=== PATIENT | female | born 1980 | race Hispanic/Latino ===

== ENCOUNTER 2023-08-24 06:11 | Emergency (ER) | payer MEDICAID, SELFPAY ==
--- NOTE | ~2023-08-24 | US_ITS ---
EXAMINATION: US OB <=14 wk fetus w TV DATE: 08/24/2023 08:25 INDICATION: Vaginal bleeding in . Beta-hCG is 3488 mIU/mL. TECHNIQUE: Real-time transabdominal and transvaginal pelvic ultrasound was performed. COMPARISON: None. FINDINGS: TRANSABDOMINAL ULTRASOUND: The uterus measures 10.8 x 5.9 x 8.4 cm. TRANSVAGINAL ULTRASOUND: There is no visible intrauterine gestational sac. The endometrial complex me asures up to 12 mm in thickness with internal vascular flow. The right ovary measures 2.7 x 3.8 x 2.0 cm. The left ovary measures 4.0 x 4.5 x 2.5 cm. There is no free fluid in the pelvis. IMPRESSION: 1. No visible intrauterine gestational sac suspicious for spontaneous or ectopic . If the patient has experienced a spontaneous , the thickened endometrial complex with manufacturing engineering intern al vascular flow would be suspicious for retained products of conception. Reviewed, dictated and finalized at location A. IMPRESSION: 1. No visible intrauterine gestational sac suspicious for spontaneous or ectopic . If the patient has experienced a spontaneous , t he thickened endometrial complex with internal vascular flow would be suspiciou s for retained products of conception.
[2023-08-24 06:13] VITALS: BP 126/87; PULSE 71; RESP 17; TEMP 36.3; O2SAT 100
[2023-08-24 06:31] LABS: Basophils Absolute Auto 0.1 K/mm3 (0.0-0.1); Basophils Percent Auto 0.9 % (0.2-1.2); Eosinophils Absolute Auto 0.4 K/mm3 (0-0.3); Eosinophils Percent Auto 4.7 % (0-4.4); Hematocrit 38.3 % (37.0-47.0); Hemoglobin 11.8 g/dL (12.0-15.0); Immature Granulocyte Absolute 0.02 K/mm3 (0.00-0.031); Immature Granulocyte Percent A 0.3 % (0-0.5); Lymphocytes Absolute Auto 2.19 K/mm3 (0.9-3.2); Lymphocytes Percent Auto 29.4 % (18.3-44.2); Mean Corpuscular HGB Conc 30.8 g/dl (32-36); Mean Corpuscular Hemoglobin 25.8 pg (26-34); Mean Corpuscular Volume 83.6 fl (80-100); Mean Platelet Volume 9.8 fl (7.4-10.4); Monocytes Absolute Auto 0.6 K/mm3 (0.1-0.6); Monocytes Percent Auto 7.7 % (2.6-8.5); Neutrophils Absolute Auto 4.3 K/mm3 (1.3-6.7); Platelet Count Result 251 k/mm3 (150-375); Red Blood Count 4.58 M/mm3 (4.2-5.4); Red Cell Distribution Width 15.4 % (11.5-14.5); White Blood Count 7.5 K/mm3 (4.5-10.0)
[2023-08-24 06:39] VITALS: BP 107/75; PULSE 69; RESP 14; O2SAT 100
[2023-08-24 06:41] LABS: Alanine Aminotransferase 19 U/L (6-35); Albumin Level 4.5 g/dL (3.5-5.1); Alkaline Phosphatase 93 U/L (38-126); Anion Gap 6 mmol/L (4-12); Aspartate Amino Transferase 18 U/L (14-36); Bilirubin,Total 0.3 mg/dL (0.2-1.3); Blood Urea Nitrogen 11 mg/dL (7-17); Carbon Dioxide 24 mmol/L (22-30); Chloride 108 mmol/L (98-107); Estimated Glomerular Filt Rate > 60; Glucose 115 mg/dL (65-110); Potassium 3.4 mmol/L (3.4-5.0); Sodium 138 mmol/L (137-145)
[2023-08-24 06:44] LABS: Prothrombin Time 13.9 Seconds (11.1-14.7)
[2023-08-24 06:46] LABS: Partial Thromboplastin Time 30.4 Seconds (22.3-36.8)
[2023-08-24 07:01] VITALS: BP 122/89; PULSE 76; RESP 17; O2SAT 100
[2023-08-24 07:10] LABS: Bacteria Urine Rare /hpf; Need Manual Microscopic Reviewed; Non Pathogenic Casts 0-2; RBC Urine >100 /hpf (0-2); Squamous Epithelial Cell Urine Occasional /hpf (Few)
[2023-08-24 07:17] LABS: Appearance Urine Turbid (Clear); Bilirubin Urine 1+ (Negative); Blood Urine 2+ (Negative); Color Urine Red (Yellow); Glucose Urine UA Negative (Negative); Ketones Urine Negative (Negative); Leukocyte Esterase Ur 2+ LEU/UL (Negative); Nitrate Urine Positive (Negative); Protein Urine 2+ mg/dL (Negative); Urobilinogen Urine 0.2 mg/dL (<2.0)
[2023-08-24 07:18] LABS: Add Urine Microscopic? YES
--- NOTE | 2023-08-24 07:22 | ED.GENADULT ---
HPI - General Adult General Chief complaint: Vaginal Bleeding Stated complaint: Vaginal bleeding, ? Time Seen by Provider: 08/24/23 06:53 History of Present Illness HPI narrative: 43-year-old female presenting to the emergency department for evaluation persistent lower abdominal pain and vaginal bleeding. Patient states last week she presented to [facility] due to abdominal pain and was told that she was in the process having a spontaneous . Patient does not have a local OB Gyne and states she was not provided 1 at time discharge. Patient presented to our hospital complaining persistent lower abdominal pain. Patient has history of 4 prior pregnancies 2 of which ended in spontaneous . Related Data Allergies Allergy/AdvReac Type Severity Reaction Status Date / Time No Known Allergies Allergy Verified 08/24/23 06:12 Review of Systems Review of Systems: All systems reviewed & are unremarkable except as noted in HPI and below Exam Narrative: APPEARANCE: Well appearing, no pain, no distress, well-nourished. HEAD: normocephalic, atraumatic. EYES: PERRLA/EOMI, conjunctivae clear. NOSE: Normal no drainage NECK: Supple. No adenopathy, no masses. RESPIRATORY: Airway patent, respirations nonlabored. Clear to auscultation bilaterally, no rales, rhonchi, wheezing. CARDIOVASCULAR: Regular rate and rhythm without murmurs rubs or gallops. ABDOMINAL: Lower abdominal tenderness to palpation MUSCULOSKELETAL: Moves all extremities. Strength/ROM intact, No edema, No calf tenderness. NEURO: Alert. Cranial nerves II through XII intact. Good gait. Good coordination SKIN: Warm, dry. Normal Color Course Vital Signs Vital signs: Vital Signs Temperature 97.4 F L 08/24/23 06:13 Pulse Rate 71 08/24/23 06:13 Respiratory Rate 17 08/24/23 06:13 Blood Pressure 126/87 08/24/23 06:13 Pulse Oximetry 100 08/24/23 06:13 Oxygen Delivery Room Air 08/24/23 06:13 Temperature 97.7 F 08/24/23 10:00 Pulse Rate 64 08/24/23 10:00 Respiratory Rate 17 08/24/23 10:00 Blood Pressure 114/68 08/24/23 10:00 Pulse Oximetry 100 08/24/23 10:00 Oxygen Delivery Room Air 08/24/23 06:13 Medical Decision Making MDM Narrative Medical decision making narrative: 43-year-old female presenting to the emergency department for evaluation for persistent or abdominal pain and vaginal bleeding after recent spontaneous . Patient is afebrile with no leukocytosis and hemoglobin of 11.8. Patient's INR is 1.0. Urine does have blood and nitrates. Patient's blood type is B positive. Ultrasound was ordered to evaluate for retained products of conception. Ultrasound was also concern for possible retained products of conception. Case was discussed with Dr Guzman. Since the patient's beta-hCG was decreased compared to her evaluate [facility] the [facility]ne was comfortable with plan for treating the patient with Cytotec. Patient was treated with 800 mg of Cytotec in the emergency department and discharged home to take an additional dose in 24 hours. Patient initially stated that she did not have an OB Gyne but patient then provided information that [facility]. Patient and family were comfortable the plan for discharge and close follow-up Differential Diagnosis Differential Diagnosis: Hemorrhage, retained products of conception, spontaneous , ectopic , Vital Signs Vital Signs: Vital Signs Temperature 97.4 F L 08/24/23 06:13 Pulse Rate 71 08/24/23 06:13 Respiratory Rate 17 08/24/23 06:13 Blood Pressure 126/87 08/24/23 06:13 Pulse Oximetry 100 08/24/23 06:13 Oxygen Delivery Room Air 08/24/23 06:13 Temperature 97.7 F 08/24/23 10:00 Pulse Rate 64 08/24/23 10:00 Respiratory Rate 17 08/24/23 10:00 Blood Pressure 114/68 08/24/23 10:00 Pulse Oximetry 100 08/24/23 10:00 Oxygen Delivery Room Air 08/24/23 06:1
[2023-08-24] MEDS: SODIUM CHLORIDE 0.9% IV 1,000 ML 999 ML IV CONT (08:12)
[2023-08-24] MEDS: HYDROmorphone HCL INJ (*CRX) 1 MG/ML SYR 0.5 MG IV PUSH (08:12)
[2023-08-24 08:33] VITALS: BP 120/68; PULSE 64; RESP 19; TEMP 36.6; O2SAT 100
[2023-08-24 09:01] VITALS: BP 115/71; PULSE 61; RESP 19; O2SAT 100
[2023-08-24 10:00] VITALS: BP 114/68; PULSE 64; RESP 17; TEMP 36.5; O2SAT 100
[2023-08-24] MEDS: miSOPROStol 200 MCG TABLET 800 MCG PO (10:27)
== END 2023-08-24 10:40 | disposition home or self-care (01) ==
PROVIDERS: Emergency Medicine; Emergency Provider Emergency Medicine
DX: R10.30 Lower abdominal pain, unspecified (principal); N93.9 Abnormal uterine and vaginal bleeding, unspecified
CPT/HCPCS: 36415; 76801; 76817; 80053; 81001; 84702; 85025; 85461; 85610; 85730; 86850; 86900; 86901; 87086; 87088; 96361; 96374; 99284; A9270; J1170; J7030

== ENCOUNTER 2023-12-02 17:35 | Emergency (ER) | payer OTHER, SELFPAY ==
--- NOTE | ~2023-12-02 | US_ITS ---
EXAMINATION: US abdomen limited DATE: 12/02/2023 20:11 INDICATION: Right upper quadrant abdominal pain after eating TECHNIQUE: Multiple grayscale and Doppler ultrasound images of the abdomen were obtained. COMPARISON: None FINDINGS: The pancreatic head and body are normal in appearance. The pancreatic tail is not visualized. The vi sualized proximal inferior vena cava is normal. Liver has normal echogenicity and contour, with a smo oth surface. No liver lesion identified. No intrahepatic biliary duct dilation suspected. Portal veno us flow was seen in the hepatopetal, normal direction and has normal Doppler waveform. Shadowing gall stones are seen in the otherwise normal-appearing gallbladder. The common bile duct measures 4 mm wade meter which is normal. Sonographic Taylor sign was reported as negative by the telephone service adviser.There is m ild right hydronephrosis. IMPRESSION: 1. Cholelithiasis without findings of acute cholecystitis or biliary ductal dilation. 2. Mild right hydronephrosis. Reviewed, dictated and finalized at location A. IMPRESSION: 1. Cholelithiasis without findings of acute cholecystitis or biliary ductal dil ation. 2. Mild right hydronephrosis.
[2023-12-02 17:37] VITALS: BP 150/83; PULSE 99; RESP 19; TEMP 36.9; O2SAT 100
[2023-12-02 18:07] LABS: Basophils Percent Auto 0.7 % (0.2-1.2); Eosinophils Absolute Auto 0.1 K/mm3 (0-0.3); Eosinophils Percent Auto 2.3 % (0-4.4); Hemoglobin 10.5 g/dL (12.0-15.0); Immature Granulocyte Absolute 0.02 K/mm3 (0.00-0.031); Immature Granulocyte Percent A 0.3 % (0-0.5); Lymphocytes Absolute Auto 1.22 K/mm3 (0.9-3.2); Lymphocytes Percent Auto 19.8 % (18.3-44.2); Mean Corpuscular HGB Conc 30.9 g/dl (32-36); Mean Corpuscular Hemoglobin 23.5 pg (26-34); Mean Corpuscular Volume 76.1 fl (80-100); Mean Platelet Volume 9.8 fl (7.4-10.4); Monocytes Absolute Auto 0.6 K/mm3 (0.1-0.6); Monocytes Percent Auto 9.3 % (2.6-8.5); Neutrophils Absolute Auto 4.2 K/mm3 (1.3-6.7); Neutrophils Percent Auto 67.6 % (45.5-73.1); Platelet Count Result 255 k/mm3 (150-375); Red Blood Count 4.47 M/mm3 (4.2-5.4); Red Cell Distribution Width 16.5 % (11.5-14.5); White Blood Count 6.2 K/mm3 (4.5-10.0)
[2023-12-02 18:24] LABS: Alanine Aminotransferase 12 U/L (6-35); Albumin Level 4.3 g/dL (3.5-5.1); Alkaline Phosphatase 71 U/L (38-126); Anion Gap 13 mmol/L (4-12); Aspartate Amino Transferase 20 U/L (14-36); Bilirubin,Total 0.2 mg/dL (0.2-1.3); Blood Urea Nitrogen 11 mg/dL (7-17); Calcium 9.8 mg/dL (8.4-10.2); Carbon Dioxide 20 mmol/L (22-30); Chloride 105 mmol/L (98-107); Estimated CRCL calculation 96 ml/min; Estimated Glomerular Filt Rate > 60; Glucose 122 mg/dL (65-110); Lipase 142 U/L (23-300); Potassium 3.5 mmol/L (3.4-5.0); Sodium 138 mmol/L (137-145)
[2023-12-02] MEDS: SODIUM CHLORIDE 0.9% IV 500 ML 999 ML IV CONT ×2 (19:00→19:36)
--- NOTE | 2023-12-02 19:14 | ED.ABDPAIN ---
HPI - Abdominal Pain General Chief Complaint: Abdominal Pain Stated Complaint: right flank pain Time Seen by Provider: 12/02/23 18:37 Source: patient Mode of arrival: ambulatory Limitations: no limitations History of Present Illness HPI narrative: Patient is a 43 y/o female who presents to the ED with c/o right flank and abdominal pain. Patient is Nepali-speaking. [employer] official court interpreter was utilized for assistance with translation. Patient is currently 12 weeks gestation, with history of [address] Bruce with OBGYN and saw her in office today, where baby was noted to be healthy. She states she developed pain throughout her right flank region, right lower back, and right-sided abdomen after her appointment after eating pizza, pain has since persisted. She has not taken anything for the pain. Reports nausea, dysuria. Denies vomiting, fevers. Denies vaginal bleeding. Related Data Allergies Allergy/AdvReac Type Severity Reaction Status Date / Time No Known Allergies Allergy Verified 08/24/23 06:12 Review of Systems Review of Systems: All systems reviewed & are unremarkable except as noted in HPI. All systems reviewed & are unremarkable except as noted in HPI and below Exam Narrative: GENERAL: Well appearing, well-nourished, non-toxic, in no acute distress. HEAD: Normocephalic, atraumatic. RESPIRATORY: Airway patent, respirations nonlabored. Clear to auscultation bilaterally, no rales, rhonchi, wheezing. CARDIOVASCULAR: Regular rate and rhythm ABDOMINAL: Soft, TTP throughout RUQ, R lateral abdomen, nondistended. Normoactive BS. MUSCULOSKELETAL: Moves all extremities. No gross deformities. TTP in R lumbosacral region. SKIN: Warm, dry, normal color. NEURO: A&O X3. Speech clear. PSYCHIATRIC: Appropriate mood and affect. Normal interaction. Course Vital Signs Vital signs: Vital Signs Temperature 98.5 F 12/02/23 17:37 Pulse Rate 99 12/02/23 17:37 Respiratory Rate 12/02/23 17:37 Blood Pressure 150/83 H 12/02/23 17:37 Pulse Oximetry 100 12/02/23 17:37 Oxygen Delivery Room Air 12/02/23 17:37 Temperature 98.5 F 12/02/23 17:37 Pulse Rate 99 12/02/23 17:37 Respiratory Rate 19 12/02/23 17:37 Blood Pressure 150/83 H 12/02/23 17:37 Pulse Oximetry 100 12/02/23 17:37 Oxygen Delivery Room Air 12/02/23 17:37 MDM - Abdominal Pain MDM Narrative Medical decision making narrative: Patient presents to ED with onset of right-sided abdominal and lower back pain today. Currently 12 weeks gestation. Confirmed IUP. Saw OBGYN today and baby noted to be healthy. Vital signs are stable upon arrival. Patient is afebrile, in no acute distress. CBC without leukocytosis. Hemoglobin mildly low at 10.5, likely related. patient denies any recent bleeding. Denies vaginal bleeding. CMP with bicarb of 20, anion gap of 13. Stable kidney function. Otherwise stable electrolytes. Normal LFTs, bilirubin, lipase. Patient given fluids in the ED. UA with lots of microscopic blood, 11-20 WBC. Patient denies seeing gross hematuria. Again denies vaginal bleeding. Urine sent for culture. RUQ US was obtained as patient with some right upper quadrant tenderness on exam. Does show cholelithiasis, also shows right hydronephrosis. Overall workup concerning for possible right-sided kidney stone. Discussed this with patient. She does have history of kidney stones and states pain today felt somewhat similar. She is feeling improved after Tylenol in the ED. I also discussed diagnosis of gallstones and possibility of biliary colic given that pain began after eating. Discussed management of such. Discussed case with Dr. Hamilton, urology, advised to treat the same as non- person. Advised if pain under control, no signs of sepsis/septic stone, can discharge home with outpatient follow-up in office. Can obtain outpatient renal and bladder ultrasound to further evaluate f
[2023-12-02 19:20] LABS: Add Urine Microscopic? YES; Appearance Urine Turbid (Clear); Bacteria Urine Rare /hpf; Bilirubin Urine Negative (Negative); Blood Urine 2+ (Negative); Color Urine Yellow (Yellow); Glucose Urine UA Trace mg/dL (Negative); Ketones Urine Negative (Negative); Leukocyte Esterase Ur Trace LEU/UL (Negative); Nitrate Urine Negative (Negative); Non Pathogenic Casts 0-2; Protein Urine Negative (Negative); RBC Urine 51-100 /hpf (0-2); Specific Grav Ur 1.015 (1.001-1.035); Squamous Epithelial Cell Urine Few /hpf (Few); Urobilinogen Urine 0.2 mg/dL (<2.0)
[2023-12-02] MEDS: ACETAMINOPHEN 500 MG TABLET 1000 MG PO (19:36)
== END 2023-12-02 23:30 | disposition home or self-care (01) ==
PROVIDERS: Emergency Medicine; Emergency Provider Physician Assistant; PCP Obstetrics & Gynecology
DX: R10.9 Unspecified abdominal pain (principal); N13.30 Unspecified hydronephrosis; K80.20 Calculus of gallbladder without cholecystitis without obstruction
CPT/HCPCS: 36415; 76705; 80053; 81001; 83690; 84702; 85025; 87086; 87088; 96361; 96365; 99284; A9270; J0696; J7040